=== PATIENT | female | born 1945 | race Caucasian/White ===

== ENCOUNTER 2019-08-23 07:26 | Day surgery (SDC) | payer MEDICARE ==
[2019-08-22 10:19] VITALS: BMI 25.6
[2019-08-23] MEDS ORDERED: Clindamycin/D5W 600 mg/50 ml Premix Bag ONE (07:33)
[2019-08-23 08:20] LABS: #Basophils 0.1 thou/uL (0.0-0.2); #Eosinphils 0.6 thou/uL (0.0-0.7); #Lymphocytes 2.1 thou/uL (1.20-3.40); #Monocytes 0.6 thou/uL (0.11-0.59); #Neutrophils 2.4 thou/uL (1.40-6.50); %Eosinophils 10.4 % (0.0-10.0); %Lymphocytes 37.1 % (21.0-51.0); %Monocytes 9.5 % (0.0-10.0); Hemoglobin 13.7 g/dL (12.0-16.0); Mean Corpuscular HGB CONC 32.6 g/dL (32.0-36.0); Mean Corpuscular Hemoglobin 27.5 pg (27.0-31.0); Mean Corpuscular Volume 84.2 fL (78.0-98.0); Platelet Count 235 thou/uL (130-400); RBC Distribution Width 13.3 % (11.5-14.5); Red Blood Cell (RBC) Count 4.98 mill/uL (4.20-5.40); White Blood Cell (WBC) Count 5.7 thou/uL (4.8-10.8)
[2019-08-23 08:32] LABS: Anion Gap 12 mmol/L (10-20); BUN (Urea Nitrogen) 13 mg/dL (9.8-20.1); Calc. Creatinine Clearance 89 mL/min (70-130); Calcium 9.2 mg/dL (7.8-10.44); Carbon Dioxide 23 mmol/L (23-31); Chloride 108 mmol/L (98-107); Estimated GFR-MDRD Greater than 90; Glucose 112 mg/dL (83-110); Potassium 3.8 mmol/L (3.5-5.1); Sodium 139 mmol/L (136-145)
[2019-08-23] MEDS ORDERED: Lidocaine 1% (PF) 30 ML VIAL ONE (09:28)
[2019-08-23] MEDS ORDERED: Fentanyl 100 MCG/2 ML VIAL ONE ×2 (09:40→11:00)
[2019-08-23] MEDS ORDERED: Lidocaine 2% PF 5 ML VIAL ONE (09:58)
[2019-08-23] MEDS ORDERED: Bupivacaine PF 0.75% SDV 10 ML ONE ×2 (09:58→10:02)
[2019-08-23] MEDS ORDERED: Dexamethasone 20 MG/5 ML VIAL ONE (11:28)
[2019-08-23] MEDS ORDERED: Ondansetron PF 4 MG/2 ML Vial ONE (11:28)
[2019-08-23] MEDS ORDERED: PROPOFOL 200 MG/20 ML VIAL ONE (11:28)
[2019-08-23] MEDS ORDERED: Ketorolac Tromethamine 30 MG/ML VIAL ONE (11:28)
[2019-08-23] MEDS ORDERED: Lidocaine 1% PF 5 ML VIAL ONE (11:28)
--- NOTE | 2019-08-23 12:13 | OP ---
DATE OF PROCEDURE: 08/23/2019 PREOPERATIVE DIAGNOSIS: Right ring finger trigger finger. POSTOPERATIVE DIAGNOSIS: Right ring finger trigger finger. PROCEDURES PERFORMED: Right open trigger finger release of right ring finger. CALL TAKER: None. ESTIMATED BLOOD LOSS: Minimal. COMPLICATIONS: None. ANESTHESIA: The patient had a general anesthetic as well as a local block. DISPOSITION: She did go to recovery room in stable condition. INDICATIONS: This is a 74-year-old female, who has painful active triggering of her right ring finger and at this time, she wished to have this surgically released. DESCRIPTION OF PROCEDURE: After all appropriate consent forms were explained and signed, she was taken back to the operating room and at this time was given general anesthetic. Once the level of anesthesia was appropriate, tourniquet was placed on the right arm. The arm was then prepped and draped in standard surgical fashion. At this time, the arm was then exsanguinated and the tourniquet was taken up to 250 mmHg. Using loupe magnification, the skin only was incised with a 15 blade in transverse fashion. Bipolar cautery was used to coagulate any brisk venous bleeding. At this time, scissor and Ragnell dissection were used to remove soft tissue from the center portion to the side and expose the central tendon. At this time, the A1 francia was seen. A 15 blade was used to incise directly over top being careful not to go down into the tendon. Scissors were used to affix to finish off our transection proximal and distal. The tendons were brought out into the wound and were found both to be intact. There were no loose bodies or other abnormality noted. At this time, the finger did not do any active triggering anymore. We then thoroughly irrigated and dried. We then placed some local into our skin edges for postop pain relief. We then used 2 interrupted nylon sutures to close the skin. A sterile soft tissue dressing was applied. The patient had the tourniquet let down. Fingers pinked up nicely. She was then awakened. She was taken to the recovery room in stable condition. All counts were correct at the end of the case. She received preoperative IV antibiotics. Job ID: [id number]
--- NOTE | 2019-08-24 12:27 | EKG ---
Test Reason : PREOP Blood Pressure : / mmHG Vent. Rate : 066 BPM Atrial Rate : 066 BPM P-R Int : 144 ms QRS Dur : 092 ms QT Int : 436 ms P-R-T Axes : 065 -30 047 degrees QTc Int : 457 ms Normal sinus rhythm Left axis deviation Abnormal ECG Confirmed by YUVAL GUERIN ([id number]) on 08/24/2019 12:27:33 PM Referred By: IERO Confirmed By:YUVAL GUERIN
== END 2019-08-23 12:40 | disposition home or self-care (01) ==
LOC: SDC 07:26
PROVIDERS: ATTEND Orthopaedic Surgery
PROC: 0LN70ZZ Release Right Hand Tendon, Open Approach (ICD-10-PCS; principal; 2019-08-23)
DX: M65.341 Trigger finger, right ring finger (principal); E78.5 Hyperlipidemia, unspecified; F12.10 Cannabis abuse, uncomplicated; M19.90 Unspecified osteoarthritis, unspecified site; K21.9 Gastro-esophageal reflux disease without esophagitis; M85.80 Other specified disorders of bone density and structure, unspecified site; G89.29 Other chronic pain; M54.9 Dorsalgia, unspecified; H81.10 Benign paroxysmal vertigo, unspecified ear; Z87.891 Personal history of nicotine dependence; Z79.899 Other long term (current) drug therapy; Z88.0 Allergy status to penicillin
CPT/HCPCS: 80048; 85025; 93005; 93010; J1100; J1885; J2001; J2405; J2704; J3010; J3490